=== PATIENT | female | born 1980 | race Caucasian/White ===

== ENCOUNTER 2016-07-31 18:05 | Emergency (ER) | payer OTHER ==
[2016-07-31 20:22] VITALS: RESP 16
[2016-07-31 20:56] LABS: % IMMATURE GRANULYOCYTES 0.2 % (0.0-1.1); ABSOLUTE IMMATURE GRANULOCYTES 0.01 10^3/uL (0.00-0.10); ADD DIFF? NO; ADD MORPH? NO; ADD SCAN? NO; ATYPICAL LYMPHOCYTE FLAG 10 (0-99); FRAGMENT RBC FLAG 0 (0-99); HEMATOCRIT 44.9 % (38.0-47.0); HEMOGLOBIN 15.7 g/dL (12.6-16.3); LEFT SHIFT FLG 0 (0-99); LIPEMIA HEMOLYSIS FLAG 90 (0-99); MEAN CELL HEMOGLOBIN 29.1 pg (27.9-34.1); MEAN CELL VOLUME 83.3 fL (81.5-99.8); MEAN PLATELET VOLUME 9.2 fL (8.7-11.7); PLATELET CLUMPS FLAG 0 (0-99); PLATELET COUNT 307 10^3/uL (150-400); RED BLOOD CELL COUNT 5.39 10^6/uL (4.18-5.33); RED CELL DISTRIBUTION WIDTH 11.9 % (11.5-15.2)
[2016-07-31 21:08] LABS: ANION GAP 11 mEq/L (8-16); CALCIUM 9.3 mg/dL (8.5-10.4); CARBON DIOXIDE 20 mEq/l (22-31); CHLORIDE 107 mEq/L (97-110); CREATININE 0.9 mg/dL (0.6-1.0); GLOMERULAR FILTRATION RATE > 60; GLUCOSE 84 mg/dL (70-100); POTASSIUM 4.4 mEq/L (3.5-5.2); SODIUM 138 mEq/L (134-144)
[2016-07-31 21:09] LABS: COLOR YELLOW; LEUKOCYTE ESTERASE,URINE NEGATIVE (NEGATIVE); NITRITE,URINE NEGATIVE (NEGATIVE)
[2016-07-31 21:12] LABS: BACTERIA TRACE /hpf (NONE SEEN); MUCUS 2+ /lpf (NONE-1+)
[2016-07-31] MEDS ORDERED: HYDROmorphONE/DILAUDID 1 MG/ML SYR ONE (21:15)
[2016-07-31] MEDS ORDERED: PROMETHAZINE HCL 25 MG/ML INJ IVP ONE (21:17)
[2016-07-31] MEDS ORDERED: NS 1,000 ML IV ONE (21:17)
[2016-07-31] MEDS ORDERED: HYDROmorphONE/DILAUDID 1 MG/ML SYR IVP ONE (21:17)
--- NOTE | 2016-07-31 21:21 | US ---
Ultrasound Pelvis Complete (Transabdominal and Endovaginal) History: Diffuse pelvic pain in a 36-year-old female with a stated clinical history of endometriosis and prior laparoscopy.. Technique: Transabdominal and endovaginal ultrasound images were obtained. Endovaginal images obtain ed for better evaluation of the uterine myometrium and adnexa. Color Doppler evaluation is employed f or assessment of vascularity. Comparison is made to the previous CT scan of the abdomen and pelvis June 04, 2016. Findings: The uterus is normal in size and measures 7.2 x 3.3 x 4.3 cm. The endometrial measures 0.7 cm in thickness. No masses are seen. The ovaries are normal in size. No adnexal masses. No free flu id is identified in the pelvis. Color and pulsed Doppler flow is identified in both ovaries . Impression: Normal pelvic ultrasound, specifically, no source for diffuse pelvic pain identified. A preliminary report was called to Dr. Blackburn at 2115 hours in the Emergency Department.
--- NOTE | 2016-07-31 21:25 | EDPHY ---
H & P Time Seen by Provider: 07/31/16 20:11 HPI/ROS: HPI Abdominal pain. 36-year-old female by private vehicle with her boyfriend. This patient has a history of Crohn's disease complicated by perforation, bowel resection and surgical complications as well as endometriosis. She presents complaining of lower abdominal pain which started when she started her menstruation 9 days ago. She states that it is consistent with her endometriosis. She has not had a fever. She has had nausea but no vomiting. She takes oxycodone and OxyContin for pain chronically. She states that she has been out of these medications for the last 2-3 days. ROS: Constitutional: No fever, no chills. No weakness. Eyes: No discharge. No changes in vision. ENT: No sore throat. No nasal congestion or rhinorrhea. Respiratory: No cough. No shortness of breath. Cardiac: No chest pain, no palpitations. Gastrointestinal: As above, no vomiting, no diarrhea. Genitourinary: No hematuria. No dysuria or increased frequency with urination. Musculoskeletal: No back pain. No neck pain. No myalgias or arthralgias. Skin: No rashes. Neurological: No headache. No focal weakness or altered sensation. Past medical history: As above and includes anxiety, depression, migraines, pericarditis, insomnia, bowel resection, hemorrhoidectomy, internal anal sphincterotomy, sepsis, ileostomy. Surgeon is Dr. Isaac Wheeler. She also sees Dr. Ta Helm with the gastroenterology service. Social history: Here with her boyfriend. Nonsmoker. Physical Exam: General Appearance: Alert, she appears uncomfortable. This patient is responding to questions appropriately and in full sentences. This patient appears well-hydrated and well-nourished. Eyes: Pupils equal and round no pallor or injection. No lid edema, erythema or injection. Respiratory: There are no retractions, lungs are clear to auscultation with good air movement bilaterally. Cardiovascular: Regular rate and rhythm. No murmur. Gastrointestinal: Abdomen is soft with vague and mild tenderness across the lower abdomen. Multiple surgical scars noted, no masses, bowel sounds normal. No focal tenderness at McBurney's point. No Stearns sign. Neurological: Motor sensory function is grossly intact. Cranial nerves are normal. Gait is normal. Skin: Warm and dry, no rashes. Musculoskeletal: No CVA tenderness on palpation. Extremities are symmetrical. All joints range without pain or impingement. Psychiatric: No agitation. No depression. Database: EKG: Imaging: Pelvic ultrasound: Negative. No free fluid. No masses. Good blood flow to both ovaries. Normal study. Results discussed with staff radiologist Dr. Yahir Neil. Procedures: Emergency department course: IV placed. She was placed on a monitor. Shortly after my evaluation she had her ultrasound. On re-evaluation at 9:20 p.m., she has not been started on IV fluids are given pain medication or antiemetics. She was given 1 mg of IV hydromorphone, 12.5 mg of IV Phenergan and started on 1 L of IV normal saline. Review of her medical records indicates a normal CT scan of the abdomen and pelvis this last May. 9:50 p.m., patient re-evaluated. She was having a panic attack which is common for her. I talked her down from this with her boyfriend. She states that her pain is better. She has not had any vomiting. She is able to tolerate oral fluids at this time. Results of her ultrasound were discussed with her. I expressed my concern about the amount of radiation she has been exposed to in the past from all of her CT scans. Her repeat abdominal exam she was soft and without significant tenderness on palpation. Her bowel sounds are active. Her presentation is not consistent with an acute surgical problem. She does feel comfortable going home. She is asking me for more pain medications. Specifically she wants oxycodone. I agreed to write her a limited prescription but explained that she needs to follow up with her primary care physician or pain management physician for ongoing treatment. Return to emergency department precautions were thoroughly reviewed with her and her boyfriend. All of her questions were answered. She was discharged from emergency department in good condition. Differential Diagnosis: The differential diagnosis on this patient includes but is not limited to endometriosis exacerbation. Ectopic , ovarian torsion, bowel obstruction, bowel perforation, volvulus, appendicitis unlikely. This represents a partial list of diagnoses considered. These considerations are based on history, physical exam, past history, reassessment and diagnostic testing. Smoking Status: Never smoked Constitutional: Initial Vital Signs Temperature (C) 37 C 07/31/16 18:35 Heart Rate 101 H 07/31/16 18:35 Respiratory Rate 18 07/31/16 18:35 Blood Pressure 109/81 H 07/31/16 18:35 O2 Sat (%) 95 07/31/16 18:35 O2 Delivery Mode Room Air Allergies/Adverse Reactions: amitriptyline HCl [From Elavil] Allergy (Verified 07/31/16 18:42) Other-Enter Comments levofloxacin [From Levaquin] Allergy (Verified 07/31/16 18:42) Other-Enter Comments moxifloxacin HCl [From Avelox] Allergy (Verified 07/31/16 18:42) Other-Enter Comments Home Medications: Medication Instructions Recorded Herbals/Supplements -Info Only 1 ea PO DAILY 05/30/15 [place]-3 Fatty Acids [Fish Oil 1000 1,000 mg PO HS 05/30/15 mg (*)] SUMAtriptan [Imitrex 50 MG (*)] 100 mg PO PRN PRN #0 tab 08/18/15 clonazePAM [klonoPIN (*)] 2 mg PO HS #0 tab 08/18/15 Escitalopram Oxalate [Lexapro] 20 mg PO DAILY 09/12/15 Melatonin [Melatonin 5 mg] 5 mg PO HS 09/12/15 Multivitamin [Chewable Multi 2 each PO DAILY 09/12/15 Vitamin] buPROPion [Wellbutrin 100mg (*)] 100 mg PO TID 09/12/15 Ondansetron Odt [Zofran Odt 4 mg 4 mg SL Q4 PRN 09/23/15 (*)] Lactobac #2-S. Therm-Bifido #1 1 each PO DAILY #30 packet 10/03/15 [VSL#3 DS PACKET] LORazepam [Ativan 1 mg (RX)] 1 mg PO Q6-8PRN PRN #10 tab 10/14/15 oxyCODONE CR [Oxycontin] 30 mg PO BID 02/16/16 oxyCODONE IR [Oxycodone Ir (*)] 10 mg PO Q3 PRN 02/16/16 Oxycodone HCl 5 mg PO Q4-6PRN PRN #10 capsule 07/31/16 Promethazine HCl [Phenergan 25mg 25 mg PO Q4-6PRN PRN #10 tab 07/31/16 (*)] Medical Decision Making - Data Points Laboratory Results: Laboratory Results 07/31/16 20:45 07/31/16 20:45 07/31/16 07/31/16 20:58 20:45 WBC 5.73 10^3/uL (3.80-9.50) RBC 5.39 H 10^6/uL (4.18-5.33) Hgb 15.7 g/dL (12.6-16.3) Hct 44.9 % (38.0-47.0) MCV 83.3 fL (81.5-99.8) MCH 29.1 pg (27.9-34.1) MCHC 35.0 g/dL (32.4-36.7) RDW 11.9 % (11.5-15.2) Plt Count 307 10^3/uL (150-400) MPV 9.2 fL (8.7-11.7) Neut % (Auto) 61.0 % (39.3-74.2) Lymph % (Auto) 30.4 % (15.0-45.0) [place] % (Auto) 6.8 % (4.5-13.0) Eos % (Auto) 0.9 % (0.6-7.6) Baso % (Auto) 0.7 % (0.3-1.7) Nucleat RBC Rel Count 0.0 % (0.0-0.2) Absolute Neuts (auto) 3.50 10^3/uL (1.70-6.50) Absolute Lymphs (auto) 1.74 10^3/uL (1.00-3.00) Absolute Monos (auto) 0.39 10^3/uL (0.30-0.80) Absolute Eos (auto) 0.05 10^3/uL (0.03-0.40) Absolute Basos (auto) 0.04 10^3/uL (0.02-0.10) Absolute Nucleated RBC 0.00 10^3/uL (0-0.01) Immature Gran % 0.2 % (0.0-1.1) Immature Gran # 0.01 10^3/uL (0.00-0.10) Sodium 138 mEq/L (134-144) Potassium 4.4 mEq/L (3.5-5.2) Chloride 107 mEq/L (97-110) Carbon Dioxide 20 L mEq/l (22-31) Anion Gap 11 mEq/L (8-16) BUN 15 mg/dL (7-23) Creatinine 0.9 mg/dL (0.6-1.0) Estimated GFR > 60 Glucose 84 mg/dL (70-100) Calcium 9.3 mg/dL (8.5-10.4) Total Bilirubin Pending Conjugated Bilirubin Pending Unconjugated Bilirubin Pending AST Pending ALT Pending Alkaline Phosphatase Pending Total Protein Pending Albumin Pending Lipase Pending Beta HCG, Qual NEGATIVE Urine Color YELLOW Urine Appearance HAZY Urine pH 5.0 (5.0-7.5) Ur Specific [place] 1.021 (1.002-1.030) Urine Protein NEGATIVE (NEGATIVE) Urine Ketones NEGATIVE (NEGATIVE) Urine Blood NEGATIVE (NEGATIVE) Urine Nitrate NEGATIVE (NEGATIVE) Urine Bilirubin NEGATIVE (NEGATIVE) Urine Urobilinogen NEGATIVE EU (0.2-1.0) Ur Leukocyte Esterase NEGATIVE (NEGATIVE) Urine RBC 1-3 /hpf (0-3) Urine WBC 1-3 /hpf (0-3) Ur Epithelial Cells 1+ /lpf (NONE-1+) Urine Bacteria TRACE H /hpf (NONE SEEN) Urine Mucus 2+ H /lpf (NONE-1+) Ur Culture Indicated? NOT INDICATED (NI) Urine Glucose NEGATIVE (NEGATIVE) Medications Given: Discontinued Medications Hydromorphone HCl (Dilaudid) 1 mg IVP EDNOW ONE Stop: 07/31/16 21:18 Last Admin: 07/31/16 21:23 Dose: 1 mg Sodium Chloride (Ns) 1,000 mls @ 0 mls/hr IV ONCE ONE PRN Reason: Wide Open Stop: 07/31/16 21:18 Last Admin: 07/31/16 21:23 Dose: 1,000 mls Promethazine HCl (Phenergan Injection) 12.5 mg IVP EDNOW ONE Stop: 07/31/16 21:18 Last Admin: 07/31/16 21:24 Dose: 12.5 mg Departure - Departure Disposition: Home, Routine, Self-Care Clinical Impression: Abdominal pain, History of endometriosis, History of Crohn's disease Condition: Good Instructions: Abdominal Pain (ED) Additional Instructions: Read and follow provided instructions. Follow-up with your primary care physician in tomorrow without fail for re- evaluation. Take medication as prescribed. [place]/Percocet dosin-2 every 4-6 hours for [address] Do not drive on this medication. Return to the emergency department for worsening abdominal pain, fever, vomiting or other serious concerns. Referrals: JOSÉ MIGUEL KNIGHT [Primary Care Provider] - As per Instructions Prescriptions: Oxycodone HCl 5 mg PO Q4-6PRN PRN #10 capsule PRN Reason: Pain, Moderate Promethazine HCl [Phenergan 25mg (*)] 25 mg PO Q4-6PRN PRN #10 tab PRN Reason: For Nausea & Vomiting
[2016-07-31 21:55] LABS: ALBUMIN 3.7 g/dL (3.5-5.0); BILIRUBIN,TOTAL 0.5 mg/dL (0.1-1.4); BILIRUBIN-CONJUGATED 0.3 mg/dL (0.0-0.5); BILIRUBIN-UNCONJUGATED 0.2 mg/dL (0.0-1.1); TOTAL PROTEIN 7.4 g/dL (6.3-8.2)
[2016-07-31 22:14] VITALS: BP 116/69; PULSE 83; TEMP 98.6; O2SAT 96
== END 2016-07-31 22:14 | disposition home or self-care (01) ==
DX: R10.30 Lower abdominal pain, unspecified (principal); Z87.19 Personal history of other diseases of the digestive system; Z87.42 Personal history of other diseases of the female genital tract
CPT/HCPCS: 96374; J1170; J2550

== ENCOUNTER 2016-09-06 06:56 | Emergency (ER) | payer OTHER ==
[2016-09-06 07:07] VITALS: RESP 18
[2016-09-06] MEDS ORDERED: ONDANSETRON 4 MG/2 ML VIAL IVP ONE (07:27)
[2016-09-06] MEDS ORDERED: NS 1,000 ML IV ONE (07:27)
--- NOTE | 2016-09-06 07:31 | EDPHY ---
H & P Stated Complaint: crohns exacerbation Time Seen by Provider: 09/06/16 07:18 HPI/ROS: Chief complaint: Abdominal pain. HPI: 36-year-old female with a history of Crohn's disease and endometriosis presenting with worsening abdominal pain since yesterday. Pain began low in her abdomen and pelvis and is become diffuse. Patient states that this does not feel similar to her endometriosis pain. Last menstrual cycle ended on the 1st and was longer than usual. She has not been able to follow up with OBGYN regarding surgery for her endometriosis secondary to her not being able to get a referral from her primary. Pain is diffuse and dull and a 8 on 10. Some subjective fevers and chills at home. Some nausea no vomiting. No diarrhea. No melena or hematochezia. ROS: 10 point Review of Systems is negative except as noted in the HPI. Past medical history: Crohn's disease Endometriosis Physical exam: Gen: Awake, Alert, No Distress HEENT: Nose: no rhinorrhea Eyes: PERRLA, EOMI Mouth: Moist mucosa Neck: Supple, no JVD Chest: nontender, lungs clear to auscultation Heart: S1, S2 normal, no murmur Abd: diffusely tender with voluntary guarding Back: no CVA tenderness, no midline tenderness Ext: no edema, non-tender Skin: no rash Neuro: CN II-XII intact, Sensation grossly intact, Strength 5/5 in bilateral upper and lower extremities - Personal History LMP (Females 10-55): 22-28 Days Ago Current Tetanus/Diphtheria Vaccine: Yes Tetanus Vaccine Date: 2011 - Medical/Surgical History Hx Asthma: No Hx Chronic Respiratory Disease: No Hx Diabetes: No Hx Cardiac Disease: No Hx Renal Disease: No Hx Cirrhosis: No Hx Alcoholism: No Hx HIV/AIDS: No Hx Splenectomy or Spleen Trauma: No Other PMH: PMH- enodmetreosis, depression, anxiety, crohns, migraines, acute pericarditis, insomnia. 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, hemorrhoidectomy , internal anal sphincterotomy, nasal reconstruction, sepsis, illiostomy - Social History Smoking Status: Never smoked Constitutional: Initial Vital Signs Temperature (C) 36.3 C 09/06/16 07:04 Heart Rate 92 09/06/16 07:04 Respiratory Rate 18 09/06/16 07:04 Blood Pressure 105/78 09/06/16 07:04 O2 Sat (%) 92 09/06/16 07:04 O2 Delivery Mode Nasal Cannula O2 (L/minute) 2 Allergies/Adverse Reactions: amitriptyline HCl [From Elavil] Allergy (Verified 07/31/16 18:42) Other-Enter Comments levofloxacin [From Levaquin] Allergy (Verified 07/31/16 18:42) Other-Enter Comments moxifloxacin HCl [From Avelox] Allergy (Verified 07/31/16 18:42) Other-Enter Comments Home Medications: Medication Instructions Recorded Herbals/Supplements -Info Only 1 ea PO DAILY 05/30/15 [place]-3 Fatty Acids [Fish Oil 1000 1,000 mg PO HS 05/30/15 mg (*)] SUMAtriptan [Imitrex 50 MG (*)] 100 mg PO PRN PRN #0 tab 08/18/15 clonazePAM [klonoPIN (*)] 2 mg PO HS #0 tab 08/18/15 Escitalopram Oxalate [Lexapro] 20 mg PO DAILY 09/12/15 Melatonin [Melatonin 5 mg] 5 mg PO HS 09/12/15 Multivitamin [Chewable Multi 2 each PO DAILY 09/12/15 Vitamin] buPROPion [Wellbutrin 100mg (*)] 100 mg PO TID 09/12/15 Ondansetron Odt [Zofran Odt 4 mg 4 mg SL Q4 PRN 09/23/15 (*)] Lactobac #2-S. Therm-Bifido #1 1 each PO DAILY #30 packet 10/03/15 [VSL#3 DS PACKET] LORazepam [Ativan 1 mg (RX)] 1 mg PO Q6-8PRN PRN #10 tab 10/14/15 oxyCODONE CR [Oxycontin] 30 mg PO BID 02/16/16 oxyCODONE IR [Oxycodone Ir (*)] 10 mg PO Q3 PRN 02/16/16 Oxycodone HCl 5 mg PO Q4-6PRN PRN #10 capsule 07/31/16 Promethazine HCl [Phenergan 25mg 25 mg PO Q4-6PRN PRN #10 tab 07/31/16 (*)] Venlafaxine 25MG (*) 09/06/16 Medical Decision Making - Data Points Laboratory Results: Laboratory Results 09/06/16 07:41 09/06/16 07:41 09/06/16 09/06/16 09/06/16 09:25 09:25 07:41 WBC RBC Hgb Hct MCV MCH MCHC RDW Plt Count MPV Neut % (Auto) Lymph % (Auto) [place] % (Auto) Eos % (Auto) Baso % (Auto) Nucleat RBC Rel Count Absolute Neuts (auto) Absolute Lymphs (auto) Absolute Monos (auto) Absolute Eos (auto) Absolute Basos (auto) Absolute Nucleated RBC Immature Gran % Immature Gran # Sodium Potassium Chloride Carbon Dioxide Anion Gap BUN Creatinine Estimated GFR Glucose Calcium Total Bilirubin Conjugated Bilirubin Unconjugated Bilirubin AST ALT Alkaline Phosphatase Total Protein Albumin Lipase Beta HCG, Qual NEGATIVE Urine Color YELLOW Urine Appearance CLEAR Urine pH 6.0 (5.0-7.5) Ur Specific [place] 1.011 (1.002-1.030) Urine Protein NEGATIVE (NEGATIVE) Urine Ketones NEGATIVE (NEGATIVE) Urine Blood NEGATIVE (NEGATIVE) Urine Nitrate NEGATIVE (NEGATIVE) Urine Bilirubin NEGATIVE (NEGATIVE) Urine Urobilinogen NEGATIVE EU EU (0.2-1.0) Ur Leukocyte Esterase NEGATIVE (NEGATIVE) Urine Glucose NEGATIVE (NEGATIVE) Urine Test NEGATIVE 09/06/16 09/06/16 07:41 07:41 WBC 7.21 10^3/uL 10^3/uL (3.80-9.50) RBC 4.97 10^6/uL 10^6/uL (4.18-5.33) Hgb 14.3 g/dL g/dL (12.6-16.3) Hct 41.7 % % (38.0-47.0) MCV 83.9 fL fL (81.5-99.8) MCH 28.8 pg pg (27.9-34.1) MCHC 34.3 g/dL g/dL (32.4-36.7) RDW 12.2 % % (11.5-15.2) Plt Count 276 10^3/uL 10^3/uL (150-400) MPV 9.3 fL fL (8.7-11.7) Neut % (Auto) 50.8 % % (39.3-74.2) Lymph % (Auto) 39.1 % % (15.0-45.0) [place] % (Auto) 6.4 % % (4.5-13.0) Eos % (Auto) 2.4 % % (0.6-7.6) Baso % (Auto) 0.7 % % (0.3-1.7) Nucleat RBC Rel Count 0.0 % % (0.0-0.2) Absolute Neuts (auto) 3.67 10^3/uL 10^3/uL (1.70-6.50) Absolute Lymphs (auto) 2.82 10^3/uL 10^3/uL (1.00-3.00) Absolute Monos (auto) 0.46 10^3/uL 10^3/uL (0.30-0.80) Absolute Eos (auto) 0.17 10^3/uL 10^3/uL (0.03-0.40) Absolute Basos (auto) 0.05 10^3/uL 10^3/uL (0.02-0.10) Absolute Nucleated RBC 0.00 10^3/uL 10^3/uL (0-0.01) Immature Gran % 0.6 % % (0.0-1.1) Immature Gran # 0.04 10^3/uL 10^3/uL (0.00-0.10) Sodium 140 mEq/L mEq/L (134-144) Potassium 4.2 mEq/L mEq/L (3.5-5.2) Chloride 103 mEq/L mEq/L (97-110) Carbon Dioxide 28 mEq/l mEq/l (22-31) Anion Gap 9 mEq/L mEq/L (8-16) BUN 23 mg/dL mg/dL (7-23) Creatinine 1.0 mg/dL mg/dL (0.6-1.0) Estimated GFR > 60 Glucose 85 mg/dL mg/dL (70-100) Calcium 9.0 mg/dL mg/dL (8.5-10.4) Total Bilirubin 0.4 mg/dL mg/dL (0.1-1.4) Conjugated Bilirubin 0.3 mg/dL mg/dL (0.0-0.5) Unconjugated Bilirubin 0.1 mg/dL mg/dL (0.0-1.1) AST 47 IU/L H IU/L (14-46) ALT 45 IU/L IU/L (9-52) Alkaline Phosphatase 112 IU/L IU/L (38-126) Total Protein 6.9 g/dL g/dL (6.3-8.2) Albumin 4.0 g/dL g/dL (3.5-5.0) Lipase 149.0 IU/L IU/L (23-300) Beta HCG, Qual Urine Color Urine Appearance Urine pH Ur Specific [place] Urine Protein Urine Ketones Urine Blood Urine Nitrate Urine Bilirubin Urine Urobilinogen Ur Leukocyte Esterase Urine Glucose Urine Test Medications Given: Discontinued Medications Hydromorphone HCl (Dilaudid) 0.5 mg IVP EDNOW ONE Stop: 09/06/16 08:44 Last Admin: 09/06/16 08:44 Dose: 0.5 mg Sodium Chloride (Ns) 1,000 mls @ 0 mls/hr IV ONCE ONE PRN Reason: Wide Open Stop: 09/06/16 07:28 Last Admin: 09/06/16 07:44 Dose: 1,000 mls Lorazepam (Ativan Injection) 1 mg IVP EDNOW ONE Stop: 09/06/16 10:14 Last Admin: 09/06/16 10:14 Dose: 1 mg Morphine Sulfate (Morphine) 4 mg IVP ONCE ONE Stop: 09/06/16 07:28 Last Admin: 09/06/16 07:59 Dose: 4 mg Ondansetron HCl (Zofran) 4 mg IVP EDNOW ONE Stop: 09/06/16 07:28 Last Admin: 09/06/16 07:59 Dose: 4 mg Departure - Departure Disposition: Home, Routine, Self-Care Clinical Impression: Ovarian cyst, Constipation, Abdominal pain Condition: Good Instructions: Ovarian Cyst (ED), Abdominal Pain (ED) Additional Instructions: Follow up with primary care physician, utility bagger, and OBGYN for further evaluation. Continue taking stool softeners for constipation and continue weaning your pain medications. Return emergency department for increasing fevers or chills, nausea, vomiting, increasing pain, or any other concerns. Referrals: JOSÉ MIGUEL KNIGHT [Primary Care Provider] - As per Instructions Geronimo Helm MD [Medical Doctor] - As per Instructions Loyda Ruiz MD [Medical Doctor] - As per Instructions
[2016-09-06] MEDS ORDERED: IOPAMIDOL (ISOVUE-300) 100 ML BTL IV ONE (07:48)
[2016-09-06 07:55] LABS: % IMMATURE GRANULYOCYTES 0.6 % (0.0-1.1); ABSOLUTE IMMATURE GRANULOCYTES 0.04 10^3/uL (0.00-0.10); ADD DIFF? NO; ADD MORPH? NO; ADD SCAN? NO; ATYPICAL LYMPHOCYTE FLAG 10 (0-99); FRAGMENT RBC FLAG 0 (0-99); HEMATOCRIT 41.7 % (38.0-47.0); HEMOGLOBIN 14.3 g/dL (12.6-16.3); LEFT SHIFT FLG 0 (0-99); LIPEMIA HEMOLYSIS FLAG 90 (0-99); MEAN CELL HEMOGLOBIN 28.8 pg (27.9-34.1); MEAN CELL HEMOGLOBIN CONCENTR. 34.3 g/dL (32.4-36.7); MEAN CELL VOLUME 83.9 fL (81.5-99.8); MEAN PLATELET VOLUME 9.3 fL (8.7-11.7); PLATELET CLUMPS FLAG 10 (0-99); PLATELET COUNT 276 10^3/uL (150-400); RED BLOOD CELL COUNT 4.97 10^6/uL (4.18-5.33); RED CELL DISTRIBUTION WIDTH 12.2 % (11.5-15.2)
[2016-09-06 08:11] LABS: ALANINE AMINOTRANSFERASE 45 IU/L (9-52); ALKALINE PHOSPHATASE 112 IU/L (38-126); ANION GAP 9 mEq/L (8-16); ASPARTATE AMINOTRANSFERASE 47 IU/L (14-46); BILIRUBIN,TOTAL 0.4 mg/dL (0.1-1.4); BILIRUBIN-CONJUGATED 0.3 mg/dL (0.0-0.5); BILIRUBIN-UNCONJUGATED 0.1 mg/dL (0.0-1.1); CARBON DIOXIDE 28 mEq/l (22-31); CHLORIDE 103 mEq/L (97-110); GLOMERULAR FILTRATION RATE > 60; GLUCOSE 85 mg/dL (70-100); POTASSIUM 4.2 mEq/L (3.5-5.2); SODIUM 140 mEq/L (134-144); TOTAL PROTEIN 6.9 g/dL (6.3-8.2)
[2016-09-06] MEDS ORDERED: HYDROmorphONE/DILAUDID 1 MG/ML SYR ONE (08:37)
[2016-09-06] MEDS ORDERED: HYDROmorphONE/DILAUDID 1 MG/ML SYR IVP ONE (08:43)
[2016-09-06 09:34] LABS: COLOR YELLOW; LEUKOCYTE ESTERASE,URINE NEGATIVE (NEGATIVE); NITRITE,URINE NEGATIVE (NEGATIVE)
[2016-09-06] MEDS ORDERED: LORazepam 2 MG/ML INJ ONE (10:09)
[2016-09-06] MEDS ORDERED: LORazepam 2 MG/ML INJ IVP ONE (10:13)
[2016-09-06 11:54] VITALS: BP 103/64; PULSE 88; TEMP 97.9; O2SAT 93
== END 2016-09-06 12:03 | disposition home or self-care (01) ==
DX: N83.201 Unspecified ovarian cyst, right side (principal); K59.00 Constipation, unspecified
CPT/HCPCS: J1170; J2405; Q9967

== ENCOUNTER 2016-09-17 02:57 | Emergency (ER) | payer OTHER ==
[2016-09-17] MEDS ORDERED: ONDANSETRON 4 MG/2 ML VIAL IVP ONE (03:04)
[2016-09-17] MEDS ORDERED: fentaNYL 100 MCG/2 ML INJ IVP ONE (03:04)
[2016-09-17] MEDS ORDERED: NS 1,000 ML IV ONE (03:04)
--- NOTE | 2016-09-17 03:10 | EDPHY ---
H & P HPI/ROS: HPI CHIEF COMPLAINT: Lower pelvic pain, abdominal pain HISTORY OF PRESENT ILLNESS: This patient very pleasant 36-year-old female significant past medical history for Crohn's disease, and multiple abdominal surgeries including ileostomy ileostomy reversal, endometriosis acute on chronic abdominal pain takes daily narcotics, she presents emergency room by EMS with sudden onset severe sharp lower abdominal pain. She tells me this feels exactly the same way when she ruptured ovarian cyst. She tells me that her pain started abruptly around midnight severe sharp 10 in 10 intense pain lower pelvic region bilateral regions. No vaginal discharge or vaginal bleeding. States the pain is localized to her lower pelvic region consistent with ovarian cyst rupture in the past. Denies being . Denies chest pain or shortness of breath. No fever. Denies nausea, vomiting, diarrhea. She did receive 50 mcg of IV fentanyl prior to arrival. She to still complains of 9/10 lower pelvic pain. No upper abdominal pain. Past Medical History: Extensive past medical history including sepsis, Crohn's disease, ileostomy, endometriosis, acute on chronic abdominal pain, opioid dependent, anxiety, depression Past Surgical History: multiple abdominal surgeries including ileostomy, ileostomy reversal, multiple laparoscopic surgeries for endometriosis, bowel resection, bowel obstruction Social History: denies daily use of drugs alcohol tobacco products Family History: Noncontributory ROS REVIEW OF SYSTEMS: A comprehensive 10 point review of systems is otherwise negative aside from elements mentioned in the history of present illness. Exam Constitutional appears nontoxic, triage nursing summary reviewed, vital signs reviewed, awake/alert. Eyes normal conjunctivae and sclera, EOMI, PERRLA. HENT normal inspection, atraumatic, moist mucus membranes, no epistaxis, neck supple/ no meningismus, no raccoon eyes. Respiratory clear to auscultation bilaterally, normal breath sounds, no respiratory distress, no wheezing. Cardiovascular rate normal, regular rhythm, no murmur, no edema, distal pulses normal. Gastrointestinal soft, mild tender palpation lower pelvic region bilaterally, , no rebound, no guarding, normal bowel sounds, no distension, no pulsatile mass. Genitourinary no CVA tenderness. Musculoskeletal no midline vertebral tenderness, full range of motion, no calf swelling, no tenderness of extremities, no meningismus, good pulses, neurovascularly intact. Skin pink, warm, & dry, no rash, skin atraumatic. Neurologic awake, alert and oriented x 3, AAOx3, moves all 4 extremities equally, motor intact, sensory intact, CN II-XII intact, normal cerebellar, normal vision, normal speech. Psychiatric normal mood/affect. Heme/Lymph/Immune no lymphadenopathy. Differential diagnosis includes but is not limited to and in no particular order : Ruptured ovarian cyst, Bowel obstruction, appendicitis, gallbladder disease, diverticulitis, colitis, enteritis, perforated viscus, gastritis, GERD, esophagitis, urinary tract infection, pyelonephritis, kidney stones Medical Decision Making: Plan for this patient IV will be established, we will obtain blood work, patient have a pelvic ultrasound to evaluate for free fluid ruptured ovarian cyst. She will be medicated with IV fentanyl 100 mcg IV fluids and IV Zofran and re-evaluate. Re-evaluation: Ultrasound of the Pelvis The results of the study are this shows good blood flow to both ovaries, there is free fluid in the pelvis bilateral regions, this right ovarian complex cyst 1.9 x 1.7 cm consistent with a hemorrhagic cyst.. I discussed the results of this study with the radiologist Dr. Finch [id number]: re-evaluation at this time patient is resting comfortably no acute distress. She does feel better after 100 mcg IV fentanyl 1 mg IV Dilaudid. Ultrasound shows a ruptured hemorrhagic ovarian cyst. Patient is feeling better she is agreeable for discharge she does understand return emergency room if she has worsening symptoms this includes worsening abdominal pain, fever vomiting. On re-examination of her abdomen is soft nontender no guarding or peritoneal signs. I did go over her ultrasound report with her and her at bedside. She understands return if worse. Limited supply given a Percocet 10 pills. Source: Patient, EMS - Personal History Tetanus Vaccine Date: 2011 - Medical/Surgical History Hx Asthma: No Hx Chronic Respiratory Disease: No Hx Diabetes: No Hx Cardiac Disease: No Hx Renal Disease: No Hx Cirrhosis: No Hx Alcoholism: No Hx HIV/AIDS: No Hx Splenectomy or Spleen Trauma: No Other PMH: PMH- enodmetreosis, depression, anxiety, crohns, migraines, acute pericarditis, insomnia. 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 , internal anal sphincterotomy, nasal reconstruction, sepsis, illiostomy - Social History Smoking Status: Never smoked Constitutional: Initial Vital Signs Temperature (C) 37.0 C 09/17/16 03:10 Heart Rate 105 H 09/17/16 03:10 Respiratory Rate 18 09/17/16 03:10 Blood Pressure 109/64 09/17/16 03:10 O2 Sat (%) 96 09/17/16 03:10 O2 Delivery Mode Room Air Allergies/Adverse Reactions: amitriptyline HCl [From Elavil] Allergy (Verified 09/17/16 03:12) Other-Enter Comments levofloxacin [From Levaquin] Allergy (Verified 09/17/16 03:12) Other-Enter Comments moxifloxacin HCl [From Avelox] Allergy (Verified 09/17/16 03:12) Other-Enter Comments Home Medications: Medication Instructions Recorded Herbals/Supplements -Info Only 1 ea PO DAILY 05/30/15 [place]-3 Fatty Acids [Fish Oil 1000 1,000 mg PO HS 05/30/15 mg (*)] SUMAtriptan [Imitrex 50 MG (*)] 100 mg PO PRN PRN #0 tab 08/18/15 clonazePAM [klonoPIN (*)] 2 mg PO HS #0 tab 08/18/15 Escitalopram Oxalate [Lexapro] 20 mg PO DAILY 09/12/15 Melatonin [Melatonin 5 mg] 5 mg PO HS 09/12/15 Multivitamin [Chewable Multi 2 each PO DAILY 09/12/15 Vitamin] buPROPion [Wellbutrin 100mg (*)] 100 mg PO TID 09/12/15 Ondansetron Odt [Zofran Odt 4 mg 4 mg SL Q4 PRN 09/23/15 (*)] Lactobac #2-S. [place]-Bifido #1 1 each PO DAILY #30 packet 10/03/15 [VSL#3 DS PACKET] LORazepam [Ativan 1 mg (RX)] 1 mg PO Q6-8PRN PRN #10 tab 10/14/15 oxyCODONE CR [Oxycontin] 30 mg PO BID 02/16/16 oxyCODONE IR [Oxycodone Ir (*)] 10 mg PO Q3 PRN 02/16/16 Oxycodone HCl 5 mg PO Q4-6PRN PRN #10 capsule 07/31/16 Promethazine HCl [Phenergan 25mg 25 mg PO Q4-6PRN PRN #10 tab 07/31/16 (*)] Venlafaxine 25MG (*) 09/06/16 Ativan 09/17/16 Effexor 09/17/16 IMITREX 09/17/16 Oxycontin 09/17/16 Zofran 09/17/16 busPIRone 09/17/16 oxyCODONE HCL/ACETAMINOPHEN 1 each PO BID #10 tablet 09/17/16 [Percocet 10-325 mg Tablet] Medical Decision Making - Data Points Laboratory Results: Laboratory Results 09/17/16 03:00 09/17/16 03:00 09/17/16 09/17/16 09/17/16 04:00 03:26 03:00 WBC RBC Hgb Hct MCV MCH MCHC RDW Plt Count MPV Neut % (Auto) Lymph % (Auto) [place] % (Auto) Eos % (Auto) Baso % (Auto) Nucleat RBC Rel Count Absolute Neuts (auto) Absolute Lymphs (auto) Absolute Monos (auto) Absolute Eos (auto) Absolute Basos (auto) Absolute Nucleated RBC Immature Gran % Immature Gran # PT INR APTT VBG Lactic Acid 1.0 mmol/L mmol/L (0.7-2.1) Sodium Potassium Chloride Carbon Dioxide Anion Gap BUN Creatinine Estimated GFR Glucose Calcium Total Bilirubin Conjugated Bilirubin Unconjugated Bilirubin AST ALT Alkaline Phosphatase Total Protein Albumin Lipase Beta HCG, Qual NEGATIVE Urine Color Pending Urine Appearance Pending Urine pH Pending Ur Specific [place] Pending Urine Protein Pending Urine Ketones Pending Urine Blood Pending Urine Nitrate Pending Urine Bilirubin Pending Urine Urobilinogen Pending Ur Leukocyte Esterase Pending Ur Culture Indicated? Pending Urine Glucose Pending 09/17/16 09/17/16 09/17/16 03:00 03:00 03:00 WBC 7.62 10^3/uL 10^3/uL (3.80-9.50) RBC 5.51 10^6/uL H 10^6/uL (4.18-5.33) Hgb 15.9 g/dL g/dL (12.6-16.3) Hct 47.4 % H % (38.0-47.0) MCV 86.0 fL fL (81.5-99.8) MCH 28.9 pg pg (27.9-34.1) MCHC 33.5 g/dL g/dL (32.4-36.7) RDW 12.3 % % (11.5-15.2) Plt Count 324 10^3/uL 10^3/uL (150-400) MPV 9.9 fL fL (8.7-11.7) Neut % (Auto) 59.7 % % (39.3-74.2) Lymph % (Auto) 31.4 % % (15.0-45.0) [place] % (Auto) 7.1 % % (4.5-13.0) Eos % (Auto) 1.0 % % (0.6-7.6) Baso % (Auto) 0.5 % % (0.3-1.7) Nucleat RBC Rel Count 0.0 % % (0.0-0.2) Absolute Neuts (auto) 4.55 10^3/uL 10^3/uL (1.70-6.50) Absolute Lymphs (auto) 2.39 10^3/uL 10^3/uL (1.00-3.00) Absolute Monos (auto) 0.54 10^3/uL 10^3/uL (0.30-0.80) Absolute Eos (auto) 0.08 10^3/uL 10^3/uL (0.03-0.40) Absolute Basos (auto) 0.04 10^3/uL 10^3/uL (0.02-0.10) Absolute Nucleated RBC 0.00 10^3/uL 10^3/uL (0-0.01) Immature Gran % 0.3 % % (0.0-1.1) Immature Gran # 0.02 10^3/uL 10^3/uL (0.00-0.10) PT 13.1 SEC SEC (12.0-15.0) INR 1.00 (0.83-1.16) APTT 27.3 SEC SEC (23.0-38.0) VBG Lactic Acid Sodium 142 mEq/L mEq/L (134-144) Potassium 4.3 mEq/L mEq/L (3.5-5.2) Chloride 104 mEq/L mEq/L (97-110) Carbon Dioxide 24 mEq/l mEq/l (22-31) Anion Gap 14 mEq/L mEq/L (8-16) BUN 15 mg/dL mg/dL (7-23) Creatinine 1.0 mg/dL mg/dL (0.6-1.0) Estimated GFR > 60 Glucose 66 mg/dL L mg/dL (70-100) Calcium 9.9 mg/dL mg/dL (8.5-10.4) Total Bilirubin 0.6 mg/dL mg/dL (0.1-1.4) Conjugated Bilirubin 0.4 mg/dL mg/dL (0.0-0.5) Unconjugated Bilirubin 0.2 mg/dL mg/dL (0.0-1.1) AST 28 IU/L IU/L (14-46) ALT 28 IU/L IU/L (9-52) Alkaline Phosphatase 104 IU/L IU/L (38-126) Total Protein 8.5 g/dL H g/dL (6.3-8.2) Albumin 4.7 g/dL g/dL (3.5-5.0) Lipase 159.0 IU/L IU/L (23-300) Beta HCG, Qual Urine Color Urine Appearance Urine pH Ur Specific [place] Urine Protein Urine Ketones Urine Blood Urine Nitrate Urine Bilirubin Urine Urobilinogen Ur Leukocyte Esterase Ur Culture Indicated? Urine Glucose Medications Given: Discontinued Medications Fentanyl (Sublimaze) 100 mcg IVP EDNOW ONE Stop: 09/17/16 03:05 Last Admin: 09/17/16 03:20 Dose: 100 mcg Hydromorphone HCl (Dilaudid) 1 mg IVP EDNOW ONE Stop: 09/17/16 04:30 Last Admin: 09/17/16 04:39 Dose: 1 mg Sodium Chloride (Ns) 1,000 mls @ 0 mls/hr IV ONCE ONE PRN Reason: Wide Open Stop: 09/17/16 03:05 Last Admin: 09/17/16 03:19 Dose: 1,000 mls Ondansetron HCl (Zofran) 4 mg IVP EDNOW ONE Stop: 09/17/16 03:05 Last Admin: 09/17/16 03:20 Dose: 4 mg Departure - Departure Disposition: Home, Routine, Self-Care Clinical Impression: Abdominal pain Qualifiers: Abdominal location: lower abdomen, unspecified Qualified Code(s): R10.30 - Lower abdominal pain, unspecified Condition: Good Instructions: Acute Abdominal Pain (ED) Additional Instructions: 1. Return emergency room if you have any worsening symptoms includes worsening abdominal pain, fever, vomiting. Referrals: Patient,NotPresent [Unknown] - As per Instructions Prescriptions: oxyCODONE HCL/ACETAMINOPHEN [Percocet 10-325 mg Tablet] 1 each PO BID #10 tablet
[2016-09-17 03:12] VITALS: RESP 18
[2016-09-17 03:31] LABS: % IMMATURE GRANULYOCYTES 0.3 % (0.0-1.1); ABSOLUTE IMMATURE GRANULOCYTES 0.02 10^3/uL (0.00-0.10); ADD DIFF? NO; ADD MORPH? NO; ADD SCAN? NO; ATYPICAL LYMPHOCYTE FLAG 10 (0-99); FRAGMENT RBC FLAG 0 (0-99); HEMATOCRIT 47.4 % (38.0-47.0); HEMOGLOBIN 15.9 g/dL (12.6-16.3); LEFT SHIFT FLG 0 (0-99); LIPEMIA HEMOLYSIS FLAG 80 (0-99); MEAN CELL HEMOGLOBIN 28.9 pg (27.9-34.1); MEAN CELL HEMOGLOBIN CONCENTR. 33.5 g/dL (32.4-36.7); MEAN PLATELET VOLUME 9.9 fL (8.7-11.7); PLATELET CLUMPS FLAG 0 (0-99); PLATELET COUNT 324 10^3/uL (150-400); RED BLOOD CELL COUNT 5.51 10^6/uL (4.18-5.33); RED CELL DISTRIBUTION WIDTH 12.3 % (11.5-15.2)
[2016-09-17 03:41] LABS: ALANINE AMINOTRANSFERASE 28 IU/L (9-52); ALBUMIN 4.7 g/dL (3.5-5.0); ALKALINE PHOSPHATASE 104 IU/L (38-126); ANION GAP 14 mEq/L (8-16); ASPARTATE AMINOTRANSFERASE 28 IU/L (14-46); BILIRUBIN,TOTAL 0.6 mg/dL (0.1-1.4); BILIRUBIN-CONJUGATED 0.4 mg/dL (0.0-0.5); BILIRUBIN-UNCONJUGATED 0.2 mg/dL (0.0-1.1); CALCIUM 9.9 mg/dL (8.5-10.4); CARBON DIOXIDE 24 mEq/l (22-31); CHLORIDE 104 mEq/L (97-110); GLOMERULAR FILTRATION RATE > 60; GLUCOSE 66 mg/dL (70-100); POTASSIUM 4.3 mEq/L (3.5-5.2); PROTIME(PATIENT) 13.1 SEC (12.0-15.0); SODIUM 142 mEq/L (134-144); TOTAL PROTEIN 8.5 g/dL (6.3-8.2)
[2016-09-17 03:42] LABS: APTT 27.3 SEC (23.0-38.0)
[2016-09-17] MEDS ORDERED: HYDROmorphONE/DILAUDID 1 MG/ML SYR IVP ONE (04:29)
[2016-09-17 04:40] VITALS: O2SAT 95
[2016-09-17 04:52] LABS: COLOR YELLOW; LEUKOCYTE ESTERASE,URINE NEGATIVE (NEGATIVE); NITRITE,URINE NEGATIVE (NEGATIVE)
[2016-09-17 05:12] VITALS: BP 138/68; PULSE 84
[2016-09-17 05:19] VITALS: TEMP 97.7
== END 2016-09-17 05:19 | disposition home or self-care (01) ==
LOC: EDUNIT#
DX: R10.30 Lower abdominal pain, unspecified (principal)
CPT/HCPCS: 96374; J1170; J2405; J3010

== ENCOUNTER 2016-09-24 20:11 | Emergency (ER) | payer OTHER ==
[2016-09-24 20:18] VITALS: TEMP 98.4
[2016-09-24] MEDS ORDERED: NS 1,000 ML IV ONE ×2 (20:23→21:21)
[2016-09-24] MEDS ORDERED: ONDANSETRON 4 MG/2 ML VIAL IVP ONE (20:31)
[2016-09-24] MEDS ORDERED: ONDANSETRON 4 MG/2 ML VIAL ONE (20:31)
--- NOTE | 2016-09-24 20:31 | EDPHY ---
General - History History Review: I reviewed the patient's medical records, I obtained additional history from the patient's family Smoking Status: Never smoked Narrative: CHIEF COMPLAINT: Abdominal pelvic pain HISTORY OF PRESENT ILLNESS: Patient has ongoing, chronic abdominal pelvic pain. She has a history of endometriosis and is awaiting surgery for this. She has had pain for months. The pain has never improved. It is worse with anything she does. Severe pain. She is crying during my entire history of present illness and examination. She denies fever. She denies vaginal bleeding or discharge. She says it has worsened over the past 2 days during the 1st 2 days of her menstrual cycle. She has been seen here for this recently with CT scan and ultrasound that were unremarkable. She is awaiting a validation intern follow-up in 2 weeks. No other associated complaints or modifying factors. PREVIOUS ABDOMINAL SURGERIES/DIAGNOSES: Endometriosis, ovarian cysts REVIEW OF SYSTEMS: Ten systems reviewed and are negative unless otherwise noted in the HPI EXAMINATION: General Appearance: Alert, no distress. Crying Head: normocephalic, atraumatic Eyes: Pupils equal and round, no conjunctival pallor or injection ENT, Mouth: Mucous membranes moist. Uvula midline. Neck: Normal inspection, supple, non-tender Respiratory: Lungs are clear to auscultation. No wheezing, rhonchi or crackles. Cardiovascular: Regular rate and rhythm. No murmur. Pulses intact distally. Gastrointestinal: Abdomen is soft. Tenderness out of proportion to examination all quadrants. No rebound. No guarding. No tympany. No CVA tenderness. Neurological: A&O, nonfocal Skin: Warm and dry, no rash Extremities: Nontender, no pedal edema Psychiatric: Mood and affect normal DIFFERENTIAL DIAGNOSES: Including but not limited to chronic pain, endometriosis, ovarian cysts, UTI, cystitis, enteritis MDM: 8:35 p.m. Acute exacerbation of chronic, ongoing abdominal pain. She does have a history of endometriosis and ovarian cyst. The pain has not acutely changed. It has been constant in duration. Says she has an appointment to see a validation intern. Her pain is out of proportion to examination. Vital signs are stable. IV fluids , IV pain medication, laboratory studies have all been ordered and her abdominal exam does not warrant CT scan or imaging at this time. 9:40 p.m. Chronic abdominal pelvic pain that she attributes to endometriosis. This is the same as her previous episodes of this. It does worsen in the 1st 2 days of her cycle, which is where she is right now. Her abdominal exam is benign. We have treated here with 2 rounds of IV pain medication, IV Zofran, IV Haldol, IV Toradol. She has improved somewhat but not resolved. We discussed discharge home with ongoing pain medication. She is to obtain further pain medication from primary care or validation intern. In addition to validation intern appointment she has in 2 weeks, we have provided additional number for the call to see if they can expedite her visit. She is discharged home in stable condition with instructions to return to the emergency department for acute worsening of her pelvic pain. ED Precautions: Worsening pain. Fever. Bloody stools. Bloody emesis. Constipation or diarrhea. SUPERVISION: Patient was evaluated in conjunction with the supervising physician. Please see their note for details. (Ruddy Castro) Medical Decision Making: PHYSICIAN DOCUMENTATION: The patient was evaluated and managed by the Physician Pipe Tester and myself. I have reviewed the chart and agree with the findings and plan of care as documented. In addition, I examined the patient myself several times, first at 2054. History confirmed as history of endometriosis, and the patient tells me that she thinks these symptoms are identical to those and she is pretty sure that is which she has today. Physical findings as follows: Patient does not have rebound or guarding, she is very tearful, she is very anxious. H & P dated 09/23/2015, DC summary dated 10/03/2015, CT dated 09/06/2016 personally reviewed reports. Also recent US during ED visit 09/17 this year. History includes Crohn's with ileostomy in 2014 after perforation after surgery for stricture, takedown 09/25/2015. Anxiety, chronic abdominal pain; patient reports severe abdominal pain symptoms for at least 4 years. Plan to treat the patient symptomatically, she has follow-up with OBGYN already scheduled. Feels better though very anxious after IV medications including ketorolac, haldol, IV fluids, benadryl. Suspicion for acute surgical process less likely. Afebrile, not , normal hr. I am the secondary supervising physician. (Collins Coulter) - Objective Vital Signs: Initial Vital Signs Temperature (C) 36.9 C 09/24/16 20:15 Heart Rate 92 09/24/16 20:15 Respiratory Rate 20 09/24/16 20:15 Blood Pressure 110/80 09/24/16 20:15 O2 Sat (%) 97 09/24/16 20:15 O2 Delivery Mode Room Air Allergies/Adverse Reactions: amitriptyline HCl [From Elavil] Allergy (Verified 09/17/16 03:12) Other-Enter Comments levofloxacin [From Levaquin] Allergy (Verified 09/17/16 03:12) Other-Enter Comments moxifloxacin HCl [From Avelox] Allergy (Verified 09/17/16 03:12) Other-Enter Comments Home Medications: Medication Instructions Recorded Herbals/Supplements -Info Only 1 ea PO DAILY 05/30/15 [place]-3 Fatty Acids [Fish Oil 1000 1,000 mg PO HS 05/30/15 mg (*)] SUMAtriptan [Imitrex 50 MG (*)] 100 mg PO PRN PRN #0 tab 08/18/15 clonazePAM [klonoPIN (*)] 2 mg PO HS #0 tab 08/18/15 Escitalopram Oxalate [Lexapro] 20 mg PO DAILY 09/12/15 Melatonin [Melatonin 5 mg] 5 mg PO HS 09/12/15 Multivitamin [Chewable Multi 2 each PO DAILY 09/12/15 Vitamin] buPROPion [Wellbutrin 100mg (*)] 100 mg PO TID 09/12/15 Ondansetron Odt [Zofran Odt 4 mg 4 mg SL Q4 PRN 09/23/15 (*)] Lactobacil 2-S.thermo-Bifido 1 1 each PO DAILY #30 packet 10/03/15 [VSL#3 DS PACKET] LORazepam [Ativan 1 mg (RX)] 1 mg PO Q6-8PRN PRN #10 tab 10/14/15 oxyCODONE CR [Oxycontin] 30 mg PO BID 02/16/16 oxyCODONE IR [Oxycodone Ir (*)] 10 mg PO Q3 PRN 02/16/16 Oxycodone HCl 5 mg PO Q4-6PRN PRN #10 capsule 07/31/16 Promethazine HCl [Phenergan 25mg 25 mg PO Q4-6PRN PRN #10 tab 07/31/16 (*)] Venlafaxine 25MG (*) 03/10/17 Ativan 09/17/16 Effexor 09/17/16 IMITREX 09/17/16 Oxycontin 09/17/16 Zofran 09/17/16 busPIRone 09/17/16 oxyCODONE HCL/ACETAMINOPHEN 1 each PO BID #10 tablet 09/17/16 [Percocet 10-325 mg Tablet] Dicyclomine [Bentyl 20 MG (*)] 20 mg PO QID PRN #20 tab 09/24/16 Naproxen [Naprosyn] 500 mg PO BID #20 tablet 09/24/16 Ondansetron Odt [Zofran Odt 4 mg 4 mg PO Q6 PRN #12 tab 09/24/16 (*)] Laboratory Results: Laboratory Results 09/24/16 20:45 09/24/16 20:45 09/24/16 09/24/16 09/24/16 20:45 20:45 20:45 WBC 8.28 10^3/uL 10^3/uL (3.80-9.50) RBC 5.49 10^6/uL H 10^6/uL (4.18-5.33) Hgb 16.0 g/dL g/dL (12.6-16.3) Hct 46.2 % % (38.0-47.0) MCV 84.2 fL fL (81.5-99.8) MCH 29.1 pg pg (27.9-34.1) MCHC 34.6 g/dL g/dL (32.4-36.7) RDW 12.4 % % (11.5-15.2) Plt Count 344 10^3/uL 10^3/uL (150-400) MPV 9.9 fL fL (8.7-11.7) Neut % (Auto) 72.0 % % (39.3-74.2) Lymph % (Auto) 21.1 % % (15.0-45.0) [place] % (Auto) 5.6 % % (4.5-13.0) Eos % (Auto) 0.4 % L % (0.6-7.6) Baso % (Auto) 0.5 % % (0.3-1.7) Nucleat RBC Rel Count 0.0 % % (0.0-0.2) Absolute Neuts (auto) 5.97 10^3/uL 10^3/uL (1.70-6.50) Absolute Lymphs (auto) 1.75 10^3/uL 10^3/uL (1.00-3.00) Absolute Monos (auto) 0.46 10^3/uL 10^3/uL (0.30-0.80) Absolute Eos (auto) 0.03 10^3/uL 10^3/uL (0.03-0.40) Absolute Basos (auto) 0.04 10^3/uL 10^3/uL (0.02-0.10) Absolute Nucleated RBC 0.00 10^3/uL 10^3/uL (0-0.01) Immature Gran % 0.4 % % (0.0-1.1) Immature Gran # 0.03 10^3/uL 10^3/uL (0.00-0.10) Sodium 138 mEq/L mEq/L (134-144) Potassium 4.6 mEq/L mEq/L (3.5-5.2) Chloride 107 mEq/L mEq/L (97-110) Carbon Dioxide 17 mEq/l L mEq/l (22-31) Anion Gap 14 mEq/L mEq/L (8-16) BUN 14 mg/dL mg/dL (7-23) Creatinine 0.8 mg/dL mg/dL (0.6-1.0) Estimated GFR > 60 Glucose 92 mg/dL mg/dL (70-100) Calcium 9.7 mg/dL mg/dL (8.5-10.4) Total Bilirubin 0.7 mg/dL mg/dL (0.1-1.4) Conjugated Bilirubin 0.7 mg/dL H mg/dL (0.0-0.5) Unconjugated Bilirubin 0.0 mg/dL mg/dL (0.0-1.1) AST 28 IU/L IU/L (14-46) ALT 27 IU/L IU/L (9-52) Alkaline Phosphatase 117 IU/L IU/L (38-126) Total Protein 8.4 g/dL H g/dL (6.3-8.2) Albumin 4.6 g/dL g/dL (3.5-5.0) Lipase 110.0 IU/L IU/L (23-300) Beta HCG, Qual NEGATIVE Medications Given: Discontinued Medications Diphenhydramine HCl (Benadryl Injection) 25 mg IVP EDNOW ONE Stop: 09/24/16 22:02 Last Admin: 09/24/16 22:06 Dose: 25 mg Haloperidol Lactate (Haldol Injection) 2.5 mg IVP EDNOW ONE Stop: 09/24/16 21:18 Last Admin: 09/24/16 21:32 Dose: 2.5 mg Sodium Chloride (Ns) 1,000 mls @ 0 mls/hr IV ONCE ONE PRN Reason: Wide Open Stop: 09/24/16 20:24 Last Admin: 09/24/16 20:53 Dose: 1,000 mls Sodium Chloride (Ns) 1,000 mls @ 0 mls/hr IV ONCE ONE PRN Reason: Wide Open Stop: 09/24/16 21:22 Last Admin: 09/24/16 21:33 Dose: 1,000 mls Ketorolac Tromethamine (Toradol) 30 mg IVP EDNOW ONE Stop: 09/24/16 21:18 Last Admin: 09/24/16 21:32 Dose: 30 mg Morphine Sulfate (Morphine) 6 mg IVP EDNOW ONE Stop: 09/24/16 20:32 Last Admin: 09/24/16 20:53 Dose: 6 mg Morphine Sulfate (Morphine) 4 mg IVP EDNOW ONE Stop: 09/24/16 21:18 Last Admin: 09/24/16 21:32 Dose: 4 mg Ondansetron HCl (Zofran) 4 mg IVP EDNOW ONE Stop: 09/24/16 20:32 Last Admin: 09/24/16 20:54 Dose: 4 mg Oxycodone/Acetaminophen (Percocet 5/325mg Prepack#4) 1 btl TAKEHOME EDNOW ONE Stop: 09/24/16 20:59 Last Admin: 09/24/16 22:23 Dose: 1 btl Departure - Departure Disposition: Home, Routine, Self-Care Clinical Impression: Chronic abdominal pain, Endometriosis Condition: Good Instructions: Oxycodone/Acetaminophen (By mouth), Endometriosis (ED), Pelvic Pain in Women (ED) Additional Instructions: Follow up with validation intern as discussed. Return to the ER for worsening pain, fever or intractable vomiting Referrals: JOSÉ MIGUEL KNIGHT [Primary Care Provider] - As per Instructions Aaliyah Glover DO [Doctor of Osteopathy] - As per Instructions Prescriptions: Dicyclomine [Bentyl 20 MG (*)] 20 mg PO QID PRN #20 tab PRN Reason: pain Naproxen [Naprosyn] 500 mg PO BID #20 tablet Ondansetron Odt [Zofran Odt 4 mg (*)] 4 mg PO Q6 PRN #12 tab PRN Reason: Nausea/Vomiting, Use 1st
[2016-09-24 20:51] LABS: % IMMATURE GRANULYOCYTES 0.4 % (0.0-1.1); ABSOLUTE IMMATURE GRANULOCYTES 0.03 10^3/uL (0.00-0.10); ADD DIFF? NO; ADD MORPH? NO; ADD SCAN? NO; ATYPICAL LYMPHOCYTE FLAG 10 (0-99); FRAGMENT RBC FLAG 0 (0-99); HEMATOCRIT 46.2 % (38.0-47.0); LEFT SHIFT FLG 0 (0-99); LIPEMIA HEMOLYSIS FLAG 90 (0-99); MEAN CELL HEMOGLOBIN 29.1 pg (27.9-34.1); MEAN CELL HEMOGLOBIN CONCENTR. 34.6 g/dL (32.4-36.7); MEAN CELL VOLUME 84.2 fL (81.5-99.8); MEAN PLATELET VOLUME 9.9 fL (8.7-11.7); PLATELET CLUMPS FLAG 60 (0-99); PLATELET COUNT 344 10^3/uL (150-400); RED BLOOD CELL COUNT 5.49 10^6/uL (4.18-5.33); RED CELL DISTRIBUTION WIDTH 12.4 % (11.5-15.2)
[2016-09-24] MEDS ORDERED: OXYCODONE/APAP 5/325MG PREPACK#4 BTL TAKEHOME ONE (20:58)
[2016-09-24 21:15] LABS: ALANINE AMINOTRANSFERASE 27 IU/L (9-52); ALBUMIN 4.6 g/dL (3.5-5.0); ALKALINE PHOSPHATASE 117 IU/L (38-126); ANION GAP 14 mEq/L (8-16); ASPARTATE AMINOTRANSFERASE 28 IU/L (14-46); BILIRUBIN,TOTAL 0.7 mg/dL (0.1-1.4); BILIRUBIN-CONJUGATED 0.7 mg/dL (0.0-0.5); CALCIUM 9.7 mg/dL (8.5-10.4); CARBON DIOXIDE 17 mEq/l (22-31); CHLORIDE 107 mEq/L (97-110); CREATININE 0.8 mg/dL (0.6-1.0); GLOMERULAR FILTRATION RATE > 60; GLUCOSE 92 mg/dL (70-100); POTASSIUM 4.6 mEq/L (3.5-5.2); SODIUM 138 mEq/L (134-144); TOTAL PROTEIN 8.4 g/dL (6.3-8.2)
[2016-09-24] MEDS ORDERED: HALOPERIDOL LACT 5 MG/ML INJ IVP ONE (21:17)
[2016-09-24] MEDS ORDERED: KETOROLAC 30 MG/1 ML SDV IVP ONE (21:17)
[2016-09-24 22:38] VITALS: BP 108/66; PULSE 75; RESP 18; O2SAT 92
== END 2016-09-24 22:38 | disposition home or self-care (01) ==
DX: N80.9 Endometriosis, unspecified (principal); G89.29 Other chronic pain
CPT/HCPCS: 96374; J1200; J1885; J2405

== ENCOUNTER 2016-10-21 05:03 | Emergency (ER) | payer OTHER ==
[2016-10-21] MEDS ORDERED: NS 1,000 ML IV ONE ×2 (05:25→06:54)
[2016-10-21] MEDS ORDERED: KETOROLAC 15 MG/1 ML SDV IVP ONE (05:26)
[2016-10-21] MEDS ORDERED: ONDANSETRON 4 MG/2 ML VIAL IVP ONE (05:26)
[2016-10-21] MEDS ORDERED: HYDROmorphONE/DILAUDID 1 MG/ML SYR IVP ONE ×2 (05:26→06:48)
[2016-10-21] MEDS ORDERED: HALOPERIDOL LACT 5 MG/ML INJ IVP ONE (05:29)
--- NOTE | 2016-10-21 05:30 | EDPHY ---
H & P Stated Complaint: abdominal pain, ran out of pain medication Time Seen by Provider: 10/21/16 05:19 HPI/ROS: Chief Complaint: Abdominal pain HPI: 36-year-old woman history of chronic abdominal pain secondary to endometriosis and Crohn's disease with complications. Patient is well-known to this emergency department myself with multiple presentations in the past. She is presenting this morning complaining of worsening abdominal pain for the last 2 days. This is in the context of her running out of her pain medications. She is supposed to see her primary care physician 2 weeks ago for refills but was and able to leave the house because of a panic attack and anxiety. Patient has an appointment to see her physician later on this afternoon. She denies any new fevers or chills. Her abdominal pain is her usual that he had she associates with her endometriosis. She was seen by OBGYN 2 weeks ago was started on oral contraceptives a week ago but has not found any relief with these as of yet. There is no new care Bull pain. No diarrhea Re, melena or hematochezia. No hematemesis. Pain is a 10/10. ROS: 10 point Review of Systems is negative except as noted in the HPI. PMH: Endometriosis, Crohn's disease status post ileostomy and reversal, chronic abdominal pain Social History: No smoking, no alcohol, no recreational drug use Family History: non-contributory Physical Exam: Gen: Awake, Alert, uncomfortable appearing HEENT: Nose: no rhinorrhea Eyes: PERRLA, EOMI Mouth: Moist mucosa Neck: Supple, no JVD Chest: nontender, lungs clear to auscultation Heart: S1, S2 normal, no murmur Abd: Soft, mild diffuse tenderness but is distractible, no guarding Back: no CVA tenderness, no midline tenderness Ext: no edema, non-tender Skin: no rash Neuro: CN II-XII intact, Sensation grossly intact, Strength 5/5 in bilateral upper and lower extremities - Personal History LMP (Females 10-55): 1-7 Days Ago Current Tetanus/Diphtheria Vaccine: Yes Current Tetanus Diphtheria and Acellular Pertussis (TDAP): Yes Tetanus Vaccine Date: 2011 - Medical/Surgical History Hx Asthma: No Hx Chronic Respiratory Disease: No Hx Diabetes: No Hx Cardiac Disease: No Hx Renal Disease: No Hx Cirrhosis: No Hx Alcoholism: No Hx HIV/AIDS: No Hx Splenectomy or Spleen Trauma: No Other PMH: PMH- enodmetreosis, depression, anxiety, crohns, migraines, acute pericarditis, insomnia. 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, obgyn nurse, hemorrhoidectomy , internal anal sphincterotomy, nasal reconstruction, sepsis, illiostomy - Social History Smoking Status: Never smoked Constitutional: Initial Vital Signs Temperature (C) 37.0 C 10/21/16 05:06 Heart Rate 130 H 10/21/16 05:06 Respiratory Rate 18 10/21/16 05:06 Blood Pressure 115/73 10/21/16 05:06 O2 Sat (%) 94 10/21/16 05:06 O2 Delivery Mode Room Air Allergies/Adverse Reactions: amitriptyline HCl [From Elavil] Allergy (Verified 10/21/16 05:06) Other-Enter Comments levofloxacin [From Levaquin] Allergy (Verified 10/21/16 05:06) Other-Enter Comments moxifloxacin HCl [From Avelox] Allergy (Verified 10/21/16 05:06) Other-Enter Comments Home Medications: Medication Instructions Recorded Herbals/Supplements -Info Only 1 ea PO DAILY 05/30/15 Lee-3 Fatty Acids [Fish Oil 1000 1,000 mg PO HS 05/30/15 mg (*)] SUMAtriptan [Imitrex 50 MG (*)] 100 mg PO PRN PRN #0 tab 08/18/15 clonazePAM [klonoPIN (*)] 2 mg PO HS #0 tab 08/18/15 Escitalopram Oxalate [Lexapro] 20 mg PO DAILY 09/12/15 Melatonin [Melatonin 5 mg] 5 mg PO HS 09/12/15 Multivitamin [Chewable Multi 2 each PO DAILY 09/12/15 Vitamin] buPROPion [Wellbutrin 100mg (*)] 100 mg PO TID 09/12/15 Ondansetron Odt [Zofran Odt 4 mg 4 mg SL Q4 PRN 09/23/15 (*)] Lactobacil 2-S.thermo-Bifido 1 1 each PO DAILY #30 packet 10/03/15 [VSL#3 DS PACKET] LORazepam [Ativan 1 mg (RX)] 1 mg PO Q6-8PRN PRN #10 tab 10/14/15 oxyCODONE CR [Oxycontin] 30 mg PO BID 02/16/16 oxyCODONE IR [Oxycodone Ir (*)] 10 mg PO Q3 PRN 02/16/16 Oxycodone HCl 5 mg PO Q4-6PRN PRN #10 capsule 07/31/16 Promethazine HCl [Phenergan 25mg 25 mg PO Q4-6PRN PRN #10 tab 07/31/16 (*)] Venlafaxine 25MG (*) 09/06/16 Ativan 09/17/16 Effexor 09/17/16 IMITREX 09/17/16 Oxycontin 09/17/16 Zofran 09/17/16 busPIRone 09/17/16 oxyCODONE HCL/ACETAMINOPHEN 1 each PO BID #10 tablet 09/17/16 [Percocet 10-325 mg Tablet] Dicyclomine [Bentyl 20 MG (*)] 20 mg PO QID PRN #20 tab 09/24/16 Naproxen [Naprosyn] 500 mg PO BID #20 tablet 09/24/16 Ondansetron Odt [Zofran Odt 4 mg 4 mg PO Q6 PRN #12 tab 09/24/16 (*)] Medical Decision Making ED Course/Re-evaluation: 36-year-old woman presenting with acute exacerbation of her chronic abdominal pain. She has run out of her pain medications for the last 2 days. This is per the patient and her . She does have an appointment with her physician later today. I will give her IV analgesia now. Once she is stabilized in terms of her pain management she will be discharged so that she can follow up with her physician as scheduled. I do not find any acute findings suggestive a new intra-abdominal process. No findings to suggest acute intra-abdominal infection, perforation or ischemia based on her presentation today. Departure - Departure Disposition: Home, Routine, Self-Care Clinical Impression: Abdominal pain Condition: Good Instructions: Abdominal Pain (ED), Chronic Abdominal Pain (ED) Additional Instructions: Follow up with primary care physician later today as scheduled at 2:45 a.m. this afternoon. Referrals: JOSÉ MIGUEL KNIGHT [Primary Care Provider] - As per Instructions
[2016-10-21] MEDS ORDERED: ONDANSETRON 4 MG/2 ML VIAL ONE (05:44)
[2016-10-21 07:30] VITALS: BP 117/62; PULSE 70; RESP 14; TEMP 98.1; O2SAT 92
== END 2016-10-21 07:31 | disposition home or self-care (01) ==
LOC: EEVIPCON 05:03
DX: R10.84 Generalized abdominal pain (principal)
CPT/HCPCS: 96374; J1170; J1885; J2405